=== PATIENT | male | born 1995 | race Caucasian/White ===

== ENCOUNTER → 2019-05-11 15:51 | Outpatient (BNVA) | payer SELFPAY | PROVIDERS: Family Provider Pediatrics Adolescent Medicine; PCP Pediatrics Adolescent Medicine; Visit Provider Family Medicine | DX: J32.9 Chronic sinusitis, unspecified (principal); J45.21 Mild intermittent asthma with (acute) exacerbation; J32.0 Chronic maxillary sinusitis; J01.00 Acute maxillary sinusitis, unspecified; J20.8 Acute bronchitis due to other specified organisms; B96.89 Other specified bacterial agents as the cause of diseases classified elsewhere | CPT/HCPCS: 87804 ==

== ENCOUNTER → 2023-01-26 11:16 | Outpatient (BNVA) | payer SELFPAY | PROVIDERS: Family Provider Pediatrics Adolescent Medicine; PCP Pediatrics Adolescent Medicine; Visit Provider Registered Nurse Neonatal Intensive Care | DX: M79.672 Pain in left foot (principal); S92.352A Displaced fracture of fifth metatarsal bone, left foot, initial encounter for closed fracture; X58.XXXA Exposure to other specified factors, initial encounter | CPT/HCPCS: 73630 ==

== ENCOUNTER 2025-02-17 16:21 | Emergency (ER) | payer BC, SELFPAY ==
[2025-02-17 16:30] VITALS: BP 136/77; PULSE 68; RESP 17; TEMP 36.7; O2SAT 97; BMI 25.0
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
[2025-02-17 17:15] VITALS: BP 126/74; PULSE 70; RESP 17; O2SAT 94
[2025-02-17] MEDS: propofol 10 mg/mL SDV 20 mL 140 MG IVP (17:45)
[2025-02-17] MEDS: ondansetron 2 mg/ML SDV 2 mL 4 MG IVP (17:58)
--- NOTE | 2025-02-17 18:07 | PC.NURSE ---
SELENE PUSHED 140 MG PROPOFOL TO REDUCED LEFT WRIST.
[2025-02-17] MEDS: HYDROmorphone 0.5 MG/0.5 ML INJ 1 MG IVP (18:53)
--- OUTSIDE RECORDS SUMMARY | 2025-02-18 01:14 | XMS_ITS | Data Portability ---
Author Organization FERNY Strauss [facility] Fili Lassiter [facility] Address [address] [address] Assessment No assessment recorded. Plan of Treatment Reminders Order Date Submit Date Provider Last Modified By Organization Details Last Modified Time Details Appointments None recorded. Lab CT + NG RNA, PCR, unspecified specimen 2022 [facility], [address] [place] [address], [address] , [place], [address], 04:59:49 RPR (rapid plasma reagin), serum 2022 023 [facility], [address] [place] [address] 248, [address], [place], [address], 04:59:49 CMP, serum or plasma 2022 023 [facility], [address] [facility], [facility] [place], [address], 04:59:47 lipid panel, blood 2022 023 [facility], [address], [facility] 1, [place], [address], 3 08:50:11 CBC 2022 023 [facility], [address] [facility], [address] [place], [address], 08:50:11 hepatitis C virus Ab, serum 2022 023 SAJ[facility], [address] [facility] [address], [address] [place], [address], 04:59:48 Referral None recorded. Procedures None recorded. Surgeries None recorded. Imaging None recorded. Medication Orders None recorded. Patient TargetsNo targets recorded. Patient InstructionsNo instructions recorded. Reason for Referral None Reported. Results Created Date Observation Date Name Description Value Unit Range Abnormal Flag Note LastModifiedBy Organization Detail LastModifiedTime 01/26/2001/27/2023 LIPID PANEL , STAND KENDRICK cholesterol, total 154 mg/dL <200 normal Not Available [address] [address] [place], [address], 01/27/2023 06:42:04 01/26/2001/27/2023 LIPID PANEL , STAND KENDRICK HDL cholesterol 52 mg/dL > or = 40 normal Not Available [facility] [address] [address] [place], [address], 01/27/2023 06:42:04 01/26/2001/27/2023 LIPID PANEL , STAND KENDRICK triglyceride s 74 mg/dL <150 normal Not Available [facility] [address] [address] [place], [address], 01/27/2023 06:42:04 01/26/2001/27/2023 LIPID PANEL , STAND KENDRICK LDL-choleste rol 86 mg/dL _(autumn c) normal Refer ence range : <100 La able range <100 mg/dL for prima ry preve ntion ; <70 mg/dL for patie nts with CHD or diabe tic patie nts with > or = 2 CHD risk facto rs. LDL-C is now calcu lated using the [facility] kins calcu isabella n, which is a valid ated novel metho d provi demetris davison r accur acy than the Fried ashley equat ion in the estim ation of LDL-C . Roseline n SS et al. MARIS. 2013; 310(1 3): 2061- 2068 (http ://ed ucati on.Macrotek Gerald SLID. com/f aq/FA Q164) Not Available [address] [address] [place], [address], 01/27/2023 06:42:04 01/26/2001/27/2023 LIPID PANEL , STAND KENDRICK chol/HDLC ratio 3.0 (calc ) <5.0 normal Not Available [address], [address], 01/27/2023 06:42:04 01/26/2001/27/2023 LIPID PANEL , STAND KENDRICK non HDL cholesterol 102 mg/dL _(autumn c) <130 normal For patie nts with diabe maria de jesus plus 1 major ASCVD risk facto r, treat ing to a non-H DL-C goal of <100 mg/dL (LDL- C of <70 mg/dL ) is consi maddisond a carinaa peluciana c optio n. Not Available [address], [address], 01/27/2023 06:42:04 01/26/2001/27/2023 COMPR EHENS ROBERT METAB OLIC PANEL glucose 97 mg/dL 65-99 normal Fasti ng refer ence inter manan Not Available [address], [address], 01/27/2023 06:42:04 01/26/2001/27/2023 COMPR EHENS ROBERT METAB OLIC PANEL urea nitrogen (BUN) 21 mg/dL 7-25 normal Not Available [address], [address], 01/27/2023 06:42:04 01/26/2001/27/2023 COMPR EHENS ROBERT METAB OLIC PANEL creatinine 1.00 mg/dL 0.60-1 .24 normal Not Available [address], [address], 01/27/2023 06:42:04 01/26/2001/27/2023 COMPR EHENS ROBERT METAB OLIC PANEL eGFR 106 mL/mi n/1.7 3m2 > or = 60 normal Not Available [address], [address], 01/27/2023 06:42:04 01/26/2001/27/2023 COMPR EHENS ROBERT METAB OLIC PANEL BUN/creatini ne ratio SEE NOTE: (calc ) 6-22 Not Repor fran: BUN and Creat inine are withi n refer ence range . Not Available [address], [address], 01/27/2023 06:42:04 01/26/2001/27/2023 COMPR EHENS ROBERT METAB OLIC PANEL sodium 140 mmol/ L 135-14 6 normal Not Available [address], [address], 01/27/2023 06:42:04 01/26/2001/27/2023 COMPR EHENS ROBERT METAB OLIC PANEL potassium 3.9 mmol/ L 3.5-5. 3 normal Not Available [address], [address], 01/27/2023 06:42:04 01/26/2001/27/2023 COMPR EHENS ROBERT METAB OLIC PANEL chloride 102 mmol/ L 98-110 normal Not Available [address], [address], 01/27/2023 06:42:04 01/26/2001/27/2023 COMPR EHENS ROBERT METAB OLIC PANEL carbon dioxide 29 mmol/ L 20-32 normal Not Available [address], [address], 01/27/2023 06:42:04 01/26/2001/27/2023 COMPR EHENS ROBERT METAB OLIC PANEL calcium 9.5 mg/dL 8.6-10 .3 normal Not Available [address], [address], 01/27/2023 06:42:04 01/26/2001/27/2023 COMPR EHENS ROBERT METAB OLIC PANEL protein, total 7.6 g/dL 6.1-8. 1 normal Not Available [address], [address], 01/27/2023 06:42:04 01/26/2001/27/2023 COMPR EHENS ROBERT METAB OLIC PANEL albumin 5.2 g/dL 3.6-5. 1 high Not Available [address], [address], 01/27/2023 06:42:04 01/26/2001/27/2023 COMPR EHENS ROBERT METAB OLIC PANEL globulin 2.4 g/dL_ (calc ) 1.9-3. 7 normal Not Available [address], [address], 01/27/2023 06:42:04 01/26/2001/27/2023 COMPR EHENS ROBERT METAB OLIC PANEL albumin/glob ulin ratio 2.2 (calc ) 1.0-2. 5 normal Not Available [address], [address], 01/27/2023 06:42:04 01/26/2001/27/2023 COMPR EHENS ROBERT METAB OLIC PANEL bilirubin, total 0.3 mg/dL 0.2-1. 2 normal Not Available [address], [address], 01/27/2023 06:42:04 01/26/2001/27/2023 COMPR EHENS ROBERT METAB OLIC PANEL alkaline phosphatase 89 U/L 36-130 normal Not Available [facility] [employer] [address], [address], 01/27/2023 06:42:04 01/26/2001/27/2023 COMPR EHENS ROBERT METAB OLIC PANEL AST 14 U/L 10-40 normal Not Available [address], [address], 01/27/2023 06:42:04 01/26/2001/27/2023 COMPR EHENS ROBERT METAB OLIC PANEL ALT 12 U/L 9-46 normal Not Available [address], [address], 01/27/2023 06:42:04 01/26/2001/27/2023 CBC (INCL UDES DIFF/ PLT) white blood cell count 6.5 thous and/u L 3.8-10 .8 normal Not Available [address], [address], 01/27/2023 04:59:48 01/26/2001/27/2023 CBC (INCL UDES DIFF/ PLT) red blood cell count 4.48 karlene on/uL 4.20-5 .80 normal Not Available [address], [address], 01/27/2023 04:59:48 01/26/2001/27/2023 CBC (INCL UDES DIFF/ PLT) hemoglobin 13.4 g/dL 13.2-1 7.1 normal Not Available [address], [address], 01/27/2023 04:59:48 01/26/2001/27/2023 CBC (INCL UDES DIFF/ PLT) hematocrit 40.8 % 38.5-5 0.0 normal Not Available [address], [address], 01/27/2023 04:59:48 01/26/2001/27/2023 CBC (INCL UDES DIFF/ PLT) MCV 91.1 fL 80.0-1 00.0 normal Not Available [address], [address], 01/27/2023 04:59:48 01/26/2001/27/2023 CBC (INCL UDES DIFF/ PLT) MCH 29.9 pg 27.0-3 3.0 normal Not Available [address], [address], 01/27/2023 04:59:48 01/26/2001/27/2023 CBC (INCL UDES DIFF/ PLT) MCHC 32.8 g/dL 32.0-3 6.0 normal Not Available [address], [address], 01/27/2023 04:59:48 01/26/2001/27/2023 CBC (INCL UDES DIFF/ PLT) RDW 12.6 % 11.0-1 5.0 normal Not Available [address], [address], 01/27/2023 04:59:48 01/26/2001/27/2023 CBC (INCL UDES DIFF/ PLT) platelet count 300 thous and/u L 140-40 0 normal Not Available [address], [address], 01/27/2023 04:59:48 01/26/2001/27/2023 CBC (INCL UDES DIFF/ PLT) MPV 9.7 fL 7.5-12 .5 normal Not Available [address], [address], 01/27/2023 04:59:48 01/26/2001/27/2023 CBC (INCL UDES DIFF/ PLT) absolute neutrophils 3816 cells /uL 1500-7 800 normal Not Available [address], [address], 01/27/2023 04:59:48 01/26/2001/27/2023 CBC (INCL UDES DIFF/ PLT) absolute lymphocytes 2035 cells /uL 850-39 00 normal Not Available [address], [address], 01/27/2023 04:59:48 01/26/2001/27/2023 CBC (INCL UDES DIFF/ PLT) absolute monocytes 436 cells /uL 200-95 0 normal Not Available [address], [address], 01/27/2023 04:59:48 01/26/2001/27/2023 CBC (INCL UDES DIFF/ PLT) absolute eosinophils 163 cells /uL 15-500 normal Not Available [address], [address], 01/27/2023 04:59:48 01/26/2001/27/2023 CBC (INCL UDES DIFF/ PLT) absolute basophils 52 cells /uL 0-200 normal Not Available [address], [address], 01/27/2023 04:59:48 01/26/2001/27/2023 CBC (INCL UDES DIFF/ PLT) neutrophils 58.7 % normal Not Available [address], [address], 01/27/2023 04:59:48 01/26/2001/27/2023 CBC (INCL UDES DIFF/ PLT) lymphocytes 31.3 % normal Not Available [address], [address], 01/27/2023 04:59:48 01/26/2001/27/2023 CBC (INCL UDES DIFF/ PLT) monocytes 6.7 % normal Not Available [address], [address], 01/27/2023 04:59:48 01/26/2001/27/2023 CBC (INCL UDES DIFF/ PLT) eosinophils 2.5 % normal Not Available [facility] [address], [address], 01/27/2023 04:59:48 01/26/2001/27/2023 CBC (INCL UDES DIFF/ PLT) basophils 0.8 % normal Not Available [facility] [address], [address], 01/27/2023 04:59:48 01/26/2001/27/2023 HEPAT ITIS C AB W/REF L TO HCV RNA, QN, PCR hepatitis C antibody NON-RE ACTIVE non-re active normal HCV antib talon was non-r eacti ve. There is no labor atory evide nce of HCV infec tion. In most cases , no furth er actio n is requi red. Howev er, if recen t HCV expos ure is suspe cted, a test for HCV RNA (test code 23657 ) is sugge sted. For addit ional infor tristan khan pleas e refer to http: //[facility] francisco javier khan.juliet stdia gnost ics.c om/fa q/FAQ 22v1 (This link is being provi ded for infor tristan calvo/ educa ru l purpo ses only. ) Not Available [address], [address], 01/27/2023 09:09:13 01/26/2001/27/2023 CHLAM YDIA/ N. GONOR RHOEA E RNA, TMA, UROGE NITAL chlamydia trachomatis RNA, tma, urogenital NOT DETECT ED not detect ed normal Not Available [facility] [address], [address], 01/27/2023 10:59:21 01/26/2001/27/2023 CHLAM YDIA/ N. GONOR RHOEA E RNA, TMA, UROGE NITAL neisseria gonorrhoeae RNA, tma, urogenital NOT DETECT ED not detect ed normal Not Available [facility] [address], [address], 01/27/2023 10:59:21 01/26/2001/27/2023 CHLAM YDIA/ N. GONOR RHOEA E RNA, TMA, UROGE NITAL comment The nancie tical perfo rmanc e hussein cteri stics of this assay , when used to test SureP ath(T M) speci mens have been deter mined by [facility]. The modif icati ons have not been clear ed or appro madan by the FDA. This assay has been valid ated pursu ant to the CLIA regul ation s and is used for clini autumn purpo ses. For addit ional infor srinivas ortega e refer to https ://ed ati on.qu jonathonNanoFlex [employer] Corporation. BYOM!/f aq/FA Q154 (This link is being provi ded for infor tristan khan/ delia vences l purpo ses only. ) Not Available [facility] [address], [address], 01/27/2023 10:59:21 01/26/2001/27/2023 RPR (DX) W/REF L TITER AND CONFI RMATO RY TESTI NG RPR (DX) w/refl titer and confirmatory testing NON-RE ACTIVE non-re active normal Not Available [facility] [address], [address], 01/27/2023 15:26:28 Result Notes None recorded. Medical Equipment None Reported. Allergies No known drug allergies Medications Name Sig Start Date Stop Date Status Note LastModified by Organization Details LastModified Time amoxicill in 500 mg capsule TAKE ONE CAPSULE BY MOUTH THREE TIMES DAILY TIL GONE. 01/25 completed Not Available Not Available Not Available promethaz ine-DM 6.25 mg-15 mg/5 mL oral syrup every six hours, as needed for cough/co ld sx 01/25 completed Recorded 06/20/19 13 4:27PM by AUTUMN Mejía, Office Visit; Refill Quantity : 0; Not Available Not Available Not Available triazolam 0.25 mg tablet GIVE 1 TABLET BY MOUTH 1 HOUR PRIOR TO DENTAL APPOINTM ENT AND BRING OTHER TO APPOINTM ENT. MUST HAVE A SEED SALES MANAGER. 01/25 completed Not Available Not Available Not Available azithromy amrik 250 mg tablet daily 01/25 completed Not Available Not Available Not Available hydrocodo ne 5 mg-acetam inophen 325 mg tablet TAKE 1 TABLET BY MOUTH EVERY 4-6 HOURS NEEDED FOR PAIN 01/25 completed Not Available Not Available Not Available amoxicill in 875 mg tablet TAKE 1 TABLET BY MOUTH TWICE DAILY 01/25 completed Not Available Not Available Not Available methylpre dnisolone 4 mg tablets in a dose pack FOLLOW PACKAGE DIRECTIO NS 01/25 completed Not Available Not Available Not Available Ventolin 90 mcg/actua tion aerosol inhaler every four hours, as needed for cough or wheezing 01/25 completed Recorded 06/20/19 13 3:50PM by Kay Hubbard LPN, Office Visit; Refill Quantity : 0; Not Available Not Available Not Available chlorhexi dine gluconate 0.12 % mouthwash SWISH 1 CAPFUL FOR 30 SECONDS THEN SPIT. USE TWICE DAILY. 01/25 completed Not Available Not Available Not Available OptiChamb er daily 01/25 completed Recorded 06/20/19 13 3:50PM by Kay Hubbard LPN, Office Visit; Refill Quantity : 0; Not Available Not Available Not Available Vitals Date Recorded Body weight Body mass index (BMI) Body height Body temperature Respiratory rate Oxygen saturation Oxygen saturation in Arterial blood by Pulse oximetry Heart rate Systolic And Diastolic Provider Name and Address Organization Details Last Updated DateTime 3 [address]261.9 5 g 22.2 kg/m2 167.64 cm 97.8 [degF] 20 /min 99 % 99 % 58 /min 130/70 mm[Hg] JEWEL LARSON [facility] 17:22:20 Social History Question Answer Notes LastModified by Organizat ion Details LastModified Time Tobacco Smoking Status Current Every Day Smoker pt vapes SHILAMICHAEL LARSON surinder [facility] 01/25/2023 17:25:08 Are You Blind Or Do You Have Difficulty Seeing? No Information not available 01/25/2023 What Is Your Level Of Caffeine Consumption? Moderate Information not available 01/25/2023 Are You Deaf Or Do You Have Serious Difficulty Hearing? No Information not available 01/25/2023 What Type Of Diet Are You Following? REGULAR Information not available 01/25/2023 What Is The Highest Grade Or Level Of School You Have Completed Or The Highest Degree You Have Received? [id number] Information not available 01/25/2023 Which Of Your Hands Is Dominant? Right Information not available 01/25/2023 What Is Your Relationship Status? Single Information not available 01/25/2023 Do You Use Your Seat Belt Or Car Seat Routinely? Yes Information not available 01/25/2023 Do You Have Difficulty Walking Or Climbing Stairs? No Information not available 01/25/2023 Are You Currently In School? No Information not available 01/25/2023 Do You Have Any Dietary Restrictions? No Information not available 01/25/2023 Sex: Unknown Functional Status Question Answer Note LastModified by Organizat ion Details LastModified Time Do you use any illicit or recreational drugs? Yes Information not available 01/25/2023 What is your level of alcohol consumption? Occasional Information not available 01/25/2023 Are you currently employed? Yes Information not available 01/25/2023 Do you have transportation difficulties? No Information not available 01/25/2023 Are you able to walk independently without assistance or assistive devices? YESWOREST Information not available 01/25/2023 Do you have difficulty doing errands alone? No Information not available 01/25/2023 Are you able to care for yourself independently? Yes Information not available 01/25/2023 Do you have difficulty dressing, bathing, grooming, or toileting? No Information not available 01/25/2023 Mental Status Question Answer Note LastModified by Organization D etails LastModified Time Do you have difficulty concentrating, remembering or making decisions? No Information no t available 01/25/2023 Family History Nothing Reported Notes:Family Members In Gene ral: Heart Disease HTN: fathers side Cancer: mothers side. Medical History No medical history recorded. Past Encounters Encounter ID Performer Location Encounter Start Date Encounter Closed Date Diagnosis/Indication Diagnosis SNOMED-CT Code Diagnosis ICD10 Code Diagnosis IMO Codes Diagnosis Note [id number] Manny Arizmendi MD [facility] ([facility]) [address] [place] [phone] 01/25/2023 17:16:12 01/27/2023 10:21:07 Adult health examination 022862418 Z00.00 We will check labs today. We will also screen the patient for hepatitis C. Health maintenanc e including regular exercise and balanced diet. High risk sexual behavior 755458593 Z72.51 Given the patient's concerns we will test his urine for gonorrhea chlamydia and check for syphilis. Has no current symptoms. Health Concerns Section Related Observation LastModified by Organization Detai ls LastModified Time None Recorded Concern Status LastModified by Organization Details LastModified Time None Recorded Advance Directives Directive None Recorded Payers Insurance Date Sequence Insurance Name Policy Number Policy Berg Covered Member ID Berg Member ID Guarantor Name 01/25/2023 1 *SELF PAY* Sh dinan [place] Notes Date Note Type Note Provider Name and Address Organization Details Recorded Time 01/25/2023 text/html Is a 27-year-old that comes in today for general checkup and wellness visit. Patient denies any medical issues. States that he would like lab work to evaluate for overall health. Does have some concerns about several STDs due to infidelity previous partner. Otherwise, the patient has no concerns. Manny Arizmendi MD [address] [place] [address], [phone], [facility] 01/26/2023 08:51:27
--- OUTSIDE RECORDS SUMMARY | 2025-02-18 01:14 | XMS_ITS | Data Portability ---
Author Organization [facility], [facility] Address [address] [place] [address] Assessment No assessment recorded. Plan of Treatment Reminders Order Date Submit Date Provider Last Modified By Organization Details Last Modified Time Details Appointments None recorde d. Lab None recorde d. Referral None recorde d. Procedures None recorde d. Surgeries None recorde d. Imaging None recorde d. Medication Orders neomyci n-polym yxin-de xameth 3.5 mg/mL-1 0,000 unit/mL -0.1% eye drops 020 05/28/19 20 INTERFACE [facility] [address] [place] [address] [place] [address], [address], 0 11:11:21 Patient TargetsNo targets recorded. Patient InstructionsNo instructions recorded. Reason for Referral None Reported. Problems No Known Problems Medical Equipment None Reported. Allergies No known drug allergies Medications Name Sig Start Date Stop Date Status Note LastModified by Organization Details LastModified Time neomyci n-polym yxin-de xameth 3.5 mg/mL-1 0,000 unit/mL -0.1% eye drops INSTILL 1 DROP INTO AFFECTED EYE(S) BY OPHTHALMIC ROUTE EVERY 3-4 HOURS 020 active Not Available Not Available Not Avai lable Vitals Date Recorded Body weight Body mass index (BMI) Body height Heart rate Body temperature Oxygen saturation Oxygen saturation in Arterial blood by Pulse oximetry Systolic And Diastolic Provider Name and Address Organization Details Last Updated DateTime 0 [address]167.8 6 g 23.8 kg/m2 168.91 cm 76 /min 97.911001467 3124 [degF] 98 % 98 % 122/69 mm[Hg] Felicitas Sarabia [facility] 0 11:03:07 Social History None recorded. Functional Status None recorded. Mental Status None recorded. Family History Nothing Reported. Medical History No medical history recorded. Past Encounters Encounter ID Performer Location Encounter Start Date Encounter Closed Date Diagnosis/Indication Diagnosis SNOMED-CT Code Diagnosis ICD10 Code Diagnosis IMO Codes Diagnosis Note [id number] David Hill PA-C [facility] [address] [place] [address] 05/28/2019 10:59:02 05/30/2019 13:52:56 Acute conjunctivitis 48635170 H10.31 Health Concerns Section Related Observation LastModified by Organization Detai ls LastModified Time None Recorded Concern Status LastModified by Organization Details LastModified Time None Recorded Advance Directives Directive None Recorded Payers Insurance Date Sequence Insurance Name Policy Number Policy Berg Covered Member ID Berg Member ID Guarantor Name 05/28/2019 1 *SELF PAY* patience Bansal Notes Date Note Type Note Provider Name a mo Address Organization Details Recorded Time 05/28/2019 text/html ROS as noted in the HPI Right eye has been bothering him since yesterday. He's not otherwise sick. He has contacts but has taken them out. He doesn't think he got anything in it but he did touch his eye right after touching a door knob. Nigel Hill [place], [place] - [facility] 05/28/2019 11:12:48
== END 2025-02-17 19:33 | disposition short-term general hospital (02) ==
PROVIDERS: Emergency Provider Emergency Medicine
DX: S63.095A Other dislocation of left wrist and hand, initial encounter (principal); S52.512A Displaced fracture of left radial styloid process, initial encounter for closed fracture; S52.612A Displaced fracture of left ulna styloid process, initial encounter for closed fracture; V29.99XA Rider (driver) (passenger) of other motorcycle injured in unspecified traffic accident, initial encounter; F17.290 Nicotine dependence, other tobacco product, uncomplicated
CPT/HCPCS: 25605; 73110; 94799; 96374; 96375; 99152; 99285; J1171; J2405; J2704; J7030; J7040